=== PATIENT | female | born 1955 | race Caucasian/White ===

== ENCOUNTER 2018-02-19 15:06 | Emergency (ER) | payer MEDICAID, OTHER ==
[~2018-02-19] VITALS: Ht 152.4 cm; Wt 66.2 kg
[~2018-02-19 15:06] MED LIST: ADVIL PO; ASPI81TA31 PO; ATENOLOL PO; FOLIC ACID PO; LOSARTAN PO; METFORMIN PO
[2018-02-19] MEDS ORDERED: SULFAMETH/TRIMETH 800/160 MG TABLET ONE (15:50)
[2018-02-19] MEDS ORDERED: MUPIROCIN 2% OINT 22 GM TUBE ONE (15:50)
[2018-02-19] MEDS ORDERED: MUPIROCIN 2% OINT 22 GM TUBE TP ONE (16:00)
[2018-02-19] MEDS ORDERED: SULFAMETH/TRIMETH 800/160 MG TABLET PO ONE (16:00)
--- NOTE | 2018-02-19 16:00 | NUR ---
Patient discharged to home in stable conditon. Written and verbal after care instructions given. Patient verbalizes understanding of instructions.
[2018-02-19 16:01] VITALS: BP 147/93
== END 2018-02-19 16:11 | disposition home or self-care (01) ==
LOC: ER 15:07
DX: L03.116 Cellulitis of left lower limb (principal); I10 Essential (primary) hypertension; E11.9 Type 2 diabetes mellitus without complications; Z88.0 Allergy status to penicillin; Z91.018 Allergy to other foods; Z91.040 Latex allergy status
CPT/HCPCS: A4663

== ENCOUNTER 2018-10-09 15:25 | Emergency (ER) | payer OTHER ==
[~2018-10-09] VITALS: Ht 160 cm; Wt 72.6 kg
== END 2018-10-09 16:23 | disposition left against medical advice (07) ==
LOC: ER 15:25
DX: Z53.21 Procedure and treatment not carried out due to patient leaving prior to being seen by health care provider (principal)
CPT/HCPCS: A4663